=== PATIENT | female | born 1995 ===

== ENCOUNTER → 2024-11-20 13:56 | Outpatient (CLI) | payer OTHER | END | disposition home or self-care (01) | LOC: PRENATAL 13:56 | PROVIDERS: ATTEND Obstetrics & Gynecology Maternal & Fetal Medicine | DX: O26.849 Uterine size-date discrepancy, unspecified trimester (principal); Z36.0 Encounter for antenatal screening for chromosomal anomalies; O21.0 Mild hyperemesis gravidarum; Z3A.17 17 weeks gestation of pregnancy ==

== ENCOUNTER 2025-04-17 12:43 | Outpatient (CLI) | payer OTHER ==
[2025-04-17 11:12] VITALS: BP 118/79
[2025-04-17] MEDS ORDERED: KEPPRA1000 MG PO (12:44)
[2025-04-17] MEDS ORDERED: PRENATAL CAPLE1 EAC1 PO (12:45)
[2025-04-17 15:19] VITALS: BP 121/73
[2025-04-17] MEDS ORDERED: RINGERS SOLUTION,LACTATED 1,000 ML IV SCH (15:45)
[2025-04-17 16:38] LABS: BASO % 0.4 % (0.1-1.2); EOS # 0.17 (0.04-0.54); EOS % 1.4 % (0.7-7.0); LYMPH # 2.37 (1.18-3.74); LYMPH % 18.9 % (19.3-53.1); MEAN PLATELET VOLUME 11.30 fl (9.4-12.4); MONO # 0.92 (0.24-0.82); MONO % 7.3 % (4.7-12.5); NEUT # 8.92 (1.56-6.13); NEUT % 71.0 % (34.0-71.1); RED CELL DISTRIBUTION WIDTH 13.0 % (11.6-14.4)
[2025-04-17 17:12] LABS: INR < 0.93
[2025-04-17 20:05] VITALS: BP 124/85
[2025-04-17] MEDS ORDERED: ACETAMINOPHEN 500 MG GEL..CAP PO PRN (21:30)
[2025-04-17] MEDS ORDERED: FAMOTIDINE/PF 20 MG/2 ML VIAL IV PUSH PRN (21:30)
[2025-04-17 23:32] VITALS: BP 111/73
[2025-04-18 03:52] VITALS: BP 113/76
[2025-04-18 07:40] VITALS: BP 112/76; O2SAT 100
[2025-04-18 12:54] VITALS: BP 112/76
== END 2025-04-18 14:07 | disposition home or self-care (01) ==
LOC: OBS/DEL 12:43
PROVIDERS: ATTEND Obstetrics & Gynecology Gynecology
DX: O36.8130 Decreased fetal movements, third trimester, not applicable or unspecified (principal); Z3A.38 38 weeks gestation of pregnancy

== ENCOUNTER 2025-04-20 11:15 | Inpatient (IN) | payer OTHER ==
[~2025-04-20] VITALS: Ht 167.6 cm; Wt 98.4 kg
[~2025-04-20 11:15] MED LIST: KEPPRA1000 MG PO; PRENATAL CAPLE1 EAC1 PO
[2025-04-20 13:59] LABS: URINE APPEARANCE Clear; URINE BILIRRUBIN Negative (NEGATIVE); URINE BLOOD Negative; URINE COLOR Yellow; URINE GLUCOSE Negative (NEGATIVE); URINE KETONE Trace (NEGATIVE); URINE LEUKOCYTE Moderate; URINE NITRATE Negative; URINE PROTEIN Trace (NEGATIVE); URINE UROBILINOGEN 0.2 E.U./dl
[2025-04-20 14:03] LABS: URINE EPITHELIAL CELLS 65.3 uL (0.0-38.8); URINE WBC 127.6 uL (0.0-23.2)
[2025-04-20 14:15] LABS: TYPE CELLS SQUAMOUS; URINE CAST 0.29 uL (0.0-1.40); URINE RBC 1.4 uL (0.0-20.8)
[2025-04-20 14:27] LABS: ALT/SGPT 19.0 U/L (12-78); AST/SGOT 18.0 U/L (15-37); BILIRUBIN TOTAL 0.15 mg/dL (0.3-1.2); BUN CREA RATIO 27.0 (7.0-25.0); CREATININE SERUM 0.52 mg/dL (0.55-1.02); GFR 138.46; GLOBULINA 3.4 G/DL (2.4-3.5); GLUCOSE FASTING 62.0 mg/dL (65-100); OSMOLALITY SERUM 278.0 MOSM/KG (275-295)
[2025-04-21 06:08] VITALS: BP 119/81
[2025-04-21 07:17] VITALS: BP 119/81
[2025-04-21] MEDS ORDERED: RINGERS SOLUTION,LACTATED 1,000 ML IV SCH (07:45)
[2025-04-21 08:47] LABS: BASO % 0.7 % (0.1-1.2); EOS # 0.15 (0.04-0.54); EOS % 1.1 % (0.7-7.0); LYMPH # 2.02 (1.18-3.74); LYMPH % 15.2 % (19.3-53.1); MEAN PLATELET VOLUME 11.60 fl (9.4-12.4); MONO # 1.02 (0.24-0.82); MONO % 7.7 % (4.7-12.5); NEUT # 9.88 (1.56-6.13); NEUT % 74.2 % (34.0-71.1); RED CELL DISTRIBUTION WIDTH 13.0 % (11.6-14.4)
[2025-04-21] MEDS ORDERED: ERYTHROMYCIN BASE OPHT 1GM EACH TUBE OP ONE (09:23)
[2025-04-21] MEDS ORDERED: OXYTOCIN 10 UNITS/ML VIAL ONE ×2 (09:23→15:59)
[2025-04-21 09:28] LABS: INR < 0.93
[2025-04-21] MEDS ORDERED: OXYTOCIN 1,000 ML IV SCH (11:00)
[2025-04-21] MEDS ORDERED: MORPHINE SULFATE 4 MG/ML CARTRIDGE IV PRN (11:00)
[2025-04-21] MEDS ORDERED: CEFAZOLIN SODIUM 1,000 MG VIAL IV ONE (11:00)
[2025-04-21 17:42] VITALS: BP 149/85
[2025-04-22 00:50] VITALS: BP 125/77
[2025-04-22 04:00] VITALS: BP 117/71
[2025-04-22 08:56] VITALS: BP 126/68
[2025-04-22] MEDS ORDERED: GABAPENTIN 300 MG CAPSULE PO SCH (09:00)
[2025-04-22] MEDS ORDERED: LevETIRAcetam 500 MG TAB. PO SCH ×2 (09:00→16:00)
[2025-04-22 09:25] LABS: BASO % 0.2 % (0.1-1.2); EOS # 0.07 (0.04-0.54); EOS % 0.3 % (0.7-7.0); LYMPH # 1.47 (1.18-3.74); LYMPH % 7.2 % (19.3-53.1); MEAN PLATELET VOLUME 11.20 fl (9.4-12.4); MONO # 1.33 (0.24-0.82); MONO % 6.5 % (4.7-12.5); NEUT # 17.39 (1.56-6.13); NEUT % 85.0 % (34.0-71.1); RED CELL DISTRIBUTION WIDTH 13.2 % (11.6-14.4)
[2025-04-22] MEDS ORDERED: OxyCODONE HCL 5 MG TABLET (ROXICODONE) PO PRN (12:15)
[2025-04-22] MEDS ORDERED: NITROFURANTOIN MONOHYD/M-CRYST 100 MG CAPSULE PO SCH (17:00)
[2025-04-22 17:07] VITALS: BP 112/73
[2025-04-23 00:55] VITALS: BP 114/73
[2025-04-23] MEDS ORDERED: OxyCODONE HCL 5 MG TABLET (ROXICODONE) PO PRN (06:00)
[2025-04-23 08:00] VITALS: BP 121/83
[2025-04-23] MEDS ORDERED: HYDROCORTISONE 2.5% 30 GM TUBE TOP SCH (09:00)
[2025-04-23 17:14] VITALS: BP 127/85
[2025-04-23] MEDS ORDERED: PATIENTS OWN MEDICATION (MEDICAMENTO EN PISO) PO SCH (21:00)
[2025-04-24] VITALS: BP 131/80
[2025-04-24 09:20] VITALS: BP 123/86
== END 2025-04-24 14:20 | disposition home or self-care (01) | DRG 787 ==
LOC: O/R 04-21 07:33 → LDR 04-21 07:33 → O/R 04-21 09:35 → OB/GYN 04-21 13:14
PROVIDERS: Obstetrics & Gynecology; ADMIT Obstetrics & Gynecology; ATTEND Obstetrics & Gynecology
PROC: 4A1HXCZ Monitoring of Products of Conception, Cardiac Rate, External Approach (ICD-10-PCS; 2025-04-21)
PROC: 10D00Z1 Extraction of Products of Conception, Low, Open Approach (ICD-10-PCS; principal; 2025-04-21 13:15)
DX: O82 Encounter for cesarean delivery without indication (principal); G40.89 Other seizures; O99.354 Diseases of the nervous system complicating childbirth; Z3A.38 38 weeks gestation of pregnancy; Z37.0 Single live birth